=== PATIENT | male | born 1960 | race Two or more races ===

== ENCOUNTER 2019-01-12 00:30 | Inpatient (IN) | payer BC ==
[2019-01-12] MEDS ORDERED: ONDANSETRON 4 MG INJ IV ×2 (06:00)
[2019-01-12] MEDS ORDERED: DOCUSATE SODIUM 100 MG CAP PO (06:00)
[2019-01-12] MEDS ORDERED: BISACODYL (EC) 5 MG TAB PO (06:00)
[2019-01-12] MEDS ORDERED: ACETAMINOPHEN 325 MG TAB PO (06:00)
[2019-01-12] MEDS ORDERED: NACL 0.9% 3 ML SYG IV (06:00)
[2019-01-12] MEDS ORDERED: GLUCOSE GEL 15 GRAM TUBE PO ×2 (06:30)
[2019-01-12] MEDS ORDERED: GLUCOSE GEL 15 GRAM TUBE BUCCAL (06:30)
[2019-01-12] MEDS ORDERED: DEXTROSE 50% 50 ML SYRINGE IV ×2 (06:30)
[2019-01-12] MEDS ORDERED: GLUCAGON 1 MG INJ IM (06:30)
[2019-01-12 06:32] LABS: ADD MAN DIFF? NO
[2019-01-12 06:37] LABS: WHITE BLOOD COUNT 6.4 10^3/ul (4.8-10.8)
[2019-01-12 06:37] LABS: ABNORMAL IP MESSAGE 1; BASOPHILS % 0.6 % (0.0-2.0); EOSINOPHILS # 0.2 10^3/ul (0.0-0.5); EOSINOPHILS % 2.5 % (0.0-7.0); HEMOGLOBIN 13.6 g/dl (14.0-18.0); LYMPHOCYTES # 2.6 10^3/ul (0.8-2.9); LYMPHOCYTES % 41.3 % (15.0-51.0); MEAN CORPUSCULAR HEMOGLOBIN 31.5 pg (29.0-33.0); MEAN CORPUSCULAR HGB CONC 34.9 g/dl (32.0-37.0); MEAN CORPUSCULAR VOLUME 90.3 fl (82.0-101.0); MEAN PLATELET VOLUME 13.2 fl (7.4-10.4); MONOCYTE # 0.5 10^3/ul (0.3-0.9); MONOCYTES % 8.3 % (0.0-11.0); PLATELET COUNT 157 10^3/UL (140-415); POSITIVE DIFF @See below; RED BLOOD COUNT 4.32 10^6/ul (4.70-6.10); RED CELL DISTRIBUTION WIDTH 11.6 % (11.5-14.5)
[2019-01-12 06:54] LABS: ALANINE AMINOTRANSFERASE 30 IU/L (13-69); ALBUMIN 3.5 g/dl (3.3-4.9); ALBUMIN/GLOBULIN RATIO 1.29; ALKALINE PHOSPHATASE 47 IU/L (42-121); ANION GAP 7 (5-13); ASPARTATE AMINO TRANSFERASE 19 IU/L (15-46); BILIRUBIN,INDIRECT 0.4 mg/dl (0-1.1); BILIRUBIN,TOTAL 0.4 mg/dl (0.2-1.3); BLOOD UREA NITROGEN 14 mg/dl (7-20); CALCIUM 8.9 mg/dl (8.4-10.2); CARBON DIOXIDE 26 mmol/L (21-31); CHLORIDE 109 mmol/L (97-110); CREATININE 0.75 mg/dl (0.61-1.24); Estimated GFR > 60 mL/min (>60); GLUCOSE 160 mg/dl (70-220); POTASSIUM 3.7 mmol/L (3.5-5.1); SODIUM 142 mmol/L (135-144); TOTAL PROTEIN 6.2 g/dl (6.1-8.1)
[2019-01-12 07:06] LABS: CHOL/HDL RATIO 3.9 RATIO; HDL CHOLESTEROL 37 mg/dl (30-78); LDL CHOLESTEROL,CALCULATED 68 mg/dl; TRIGLYCERIDES 204 mg/dl (0-149)
[2019-01-12 07:06] LABS: CHOLESTEROL 146 mg/dl (100-200)
[2019-01-12] MEDS: MECLIZINE 25 MG TAB PO ×3 (08:08→12:10)
[2019-01-12] MEDS: INSULIN ASPART [NOVOLOG] 3 ML PEN SC ×3 (08:10→18:13)
[2019-01-12 11:25] LABS: THYROID STIMULATING HORMONE 0.683 MIU/L (0.465-4.680)
[2019-01-12] MEDS ORDERED: NITROGLYCERIN (SL) 0.4 MG TAB SL (14:00)
[2019-01-12] MEDS: ASPIRIN 81 MG TAB PO (14:20)
[2019-01-12] MEDS: INSULIN GLARGINE [LANTus] (100 UNITS/ML) SYG SC (14:21)
[2019-01-12 14:30] LABS: CREATINE KINASE 67 IU/L (23-200)
[2019-01-12 14:43] LABS: CK INDEX 1.7; CK-MB 1.13 ng/ml (0.0-2.4); TROPONIN-I < 0.012 ng/ml (0.000-0.120)
[2019-01-12] MEDS ORDERED: FISH OIL 1,000 MG CAP PO (21:00)
[2019-01-12] MEDS ORDERED: MECLIZINE 12.5 MG TAB PO (21:00)
[2019-01-12] MEDS ORDERED: ATORVASTATIN 40 MG TAB PO (21:00)
[2019-01-13] MEDS ORDERED: ACCU-CHEK XX (02:00)
[2019-01-13] MEDS ORDERED: INFLUENZA VIRUS VACCINE 0.5 ML (DISPENSING) IM* (10:00)
== END 2019-01-12 18:54 | disposition home or self-care (01) | DRG 313 ==
LOC: PP2 00:30 → TEL 15:49
PROVIDERS: Family Medicine
DX: R07.9 Chest pain, unspecified (principal); R42 Dizziness and giddiness; E11.9 Type 2 diabetes mellitus without complications; E78.5 Hyperlipidemia, unspecified; I10 Essential (primary) hypertension
CPT/HCPCS: 80053; 80061; 82306; 82550; 82553; 82962; 83036; 83735; 84443; 84484; 85025; 93005; 93306